=== PATIENT | female | born 1995 | race Caucasian/White ===

== ENCOUNTER 2018-01-09 13:44 | Emergency (ER) | payer OTHER, MEDICAID ==
[2018-01-09] MEDS: IBUPROFEN 800 MG TAB PO (17:12)
[2018-01-09] MEDS: IPRATROPIUM (NEB) 0.5 MG/2.5 ML AMP NEB (17:18)
[2018-01-09] MEDS: ALBUTEROL 0.083% (NEB) 2.5 MG/3 ML AMP NEB (17:19)
== END 2018-01-09 18:07 | disposition home or self-care (01) ==
LOC: FTE 13:44
DX: J10.1 Influenza due to other identified influenza virus with other respiratory manifestations (principal)
CPT/HCPCS: 71045; 87400; 99284-25